=== PATIENT | female | born 1950 | race Caucasian/White ===

== ENCOUNTER → 2024-01-01 12:56 | Outpatient (REF) | payer MEDICARE, BC, SELFPAY | LOC: HWRAD 12:56 | PROVIDERS: ATTENDING PHYSICIAN Surgery; FAMILY PHYSICIAN Internal Medicine; REFERRING PHYSICIAN Internal Medicine Hematology & Oncology | DX: Z12.31 Encounter for screening mammogram for malignant neoplasm of breast (principal) | CPT/HCPCS: 77063; 77067 ==

== ENCOUNTER → 2024-01-07 10:27 | Outpatient (REF) | payer MEDICARE, BC, SELFPAY ==
[2024-01-07 12:42] LABS: ALT (SGPT) 16 U/L (0-35); AST (SGOT) 25 U/L (14-36); Albumin 4.4 g/dl (3.5-5.0); Alkaline Phosphatase 74 U/L (38-126); Blood Urea Nitrogen 12 mg/dl (7-17); Calcium 9.5 mg/dl (8.4-10.2); Carbon Dioxide 30 mmol/L (22-30); Chloride 99 mmol/L (98-107); Glucose 101 mg/dl (70-99); Sodium 137 mmol/L (135-145); Total Protein 7.4 g/dl (6.3-8.2); eGFR > 60.00
[2024-01-07 12:59] LABS: Vitamin D, 25-OH*** 34.1 ng/mL (30-80)
== END ==
LOC: HWRAD 10:27
PROVIDERS: ATTENDING PHYSICIAN Internal Medicine Hematology & Oncology; FAMILY PHYSICIAN Internal Medicine; OTHER PHYSICIAN Nurse Practitioner Adult Health; REFERRING PHYSICIAN Surgery
DX: C50.212 Malignant neoplasm of upper-inner quadrant of left female breast (principal); Z78.0 Asymptomatic menopausal state; E55.9 Vitamin D deficiency, unspecified
CPT/HCPCS: 36415; 77080; 80053; 82306

== ENCOUNTER → 2024-01-09 12:23 | Outpatient (REF) | payer MEDICARE, BC, SELFPAY | LOC: HWRAD 12:23 | PROVIDERS: ATTENDING PHYSICIAN Internal Medicine Hematology & Oncology; FAMILY PHYSICIAN Internal Medicine | DX: C50.212 Malignant neoplasm of upper-inner quadrant of left female breast (principal) | CPT/HCPCS: 72072 ==

== ENCOUNTER 2024-03-31 09:39 | Day surgery (SDC) | payer MEDICARE, BC, SELFPAY ==
--- NOTE | 2024-03-31 10:42 | ITS.CL.CARDI ---
Inspector Packer - Cardioversion
Cardioversion
Procedure Report:
Date of Procedure:
Procedure: Cardioversion
Indication: Symptomatic atrial fibrillation
Performing Physician: Maciej Hicks MD
Technique: The patient was brought to the holding area. Signed informed consent was obtained. A time out was called and performed. The patient was anesthetized by the anesthesia service. Anticoagulation status was reviewed and appropriate. R2 pads
were placed anteriorly and posteriorly. A 200 J synchronized biphasic shock restored normal sinus rhythm without significant bradycardia. There were no complications.
Conclusion: Uncomplicated cardioversion from atrial fibrillation to sinus rhythm.
Recommendation: Routine post cardioversion care. Continue half-way anticoagulation.
== END 2024-03-31 11:31 | disposition home or self-care (01) ==
LOC: CATH 09:39
PROVIDERS: ATTENDING PHYSICIAN Internal Medicine Cardiovascular Disease; FAMILY PHYSICIAN Internal Medicine
DX: I48.0 Paroxysmal atrial fibrillation (principal); R06.09 Other forms of dyspnea; I10 Essential (primary) hypertension; E78.5 Hyperlipidemia, unspecified; G47.33 Obstructive sleep apnea (adult) (pediatric); E05.90 Thyrotoxicosis, unspecified without thyrotoxic crisis or storm; Z85.3 Personal history of malignant neoplasm of breast; Z79.01 Long term (current) use of anticoagulants
CPT/HCPCS: 92960; 93005

== ENCOUNTER → 2024-04-05 15:52 | Outpatient (REF) | payer MEDICARE, BC, SELFPAY ==
--- NOTE | 2024-04-05 17:08 | CARDSERVDEF ---
Echocardiogram with Definity completed after protocol screening completed. Allergies verified.
Patent IV site: __RH___
IV site flushed with 0.9% NaCl pre and post administration.
Diluted bolus method utilized to enhance visualization of ventricular langley.
Total volume given: __3__ mL
Patient tolerated all procedures well without complications.
== END ==
LOC: RCS 15:52
PROVIDERS: ATTENDING PHYSICIAN Internal Medicine Cardiovascular Disease; FAMILY PHYSICIAN Internal Medicine
DX: R06.09 Other forms of dyspnea (principal)
CPT/HCPCS: 93306; Q9957

== ENCOUNTER 2024-06-21 08:11 | Inpatient (IN) | payer MEDICARE, BC, SELFPAY ==
[2024-06-21 08:49] VITALS: BMI 32.4
[2024-06-21 09:00] VITALS: BP 135/89
--- NOTE | 2024-06-21 09:32 | W.PN.CARDCBS ---
Addendum entered and electronically signed by Cj Manning DO 06/21/24 11:12:
I saw and examined the patient.
The In Classroom Tutor's note was reviewed and I agree with the note.
Comment:
Plan:
Tikosyn load.
Monitor QTc
Cardioversion Aug 21 AM if she fails to convert.
Cont Tele
Discussed with family at bedside.
Original Note:
Today's Communication / Plan
-
Start Tikosyn pending labs
Impression / Plan
-
PCP: Dr. Gulshan Nava
Cardiology: Dr. Fernanda Santiago
Impression:
Direct admission for Tikosyn load 06/21/24
Paroxysmal to persistent Afib
s/p PVI 2016
s/p PVI 09/11/21
Previously on propafenone, stopped due to ineffectiveness 05/01/22
Previously on sotalol, stopped due to ineffectiveness, from 05/2022 until 06/2024
Chronic Eliquis OAC
HTN
ANDRZEJ
Silent reflux and esophageal spasm treated with low dose amlodipine
Echo 04/25/22: EF 55-60%, mild MR, mild abnormal LA size
Echo 04/05/24: EF 60-65%, mild conc LVH, normal RV size and function, no aortic regurgitation
Plan:
-Patient was seen by Dr. Fernanda Santiago in the office 05/25/24 and was found to have a recurrence of Afib. Patient was offered direct admission for Tikosyn therapy and agreed. Patient had PVIs 2016 and 09/11/21. Propafenone was stopped after the
2020 ablation. Sotalol was loaded 05/2022 and last dose was 06/10/24. No missed doses of Eliquis. Patient denies intercurrent illnesses.
-QTc 471 on ECG in rate controlled Afib prior to 1st dose of Tikosyn. Will follow ECGs 2 hours after each dose of Tikosyn
-Labs pending, patient was a difficult stick.
-Toprol XL 12.5 mg daily started 06/14/24 as sotalol was washing prior to this admission. Will follow HRs on tele and likely Toprol XL will need to be stopped given h/o bradycardia. Hold parameters placed for HR less than 60.
-Cont amlodipine 2.5 mg daily which is from GI for her esophageal spasm.
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
Subjective
Date of Service: June 21, 2024
She feels well
Objective
Labs:
BUN 18, creatinine 0.5, sodium 130, potassium 4.1
Hemoglobin 13.3, WBC 5.4, PLT 164
Vital Signs and I&O:
135/89, heart rate 64 in A-fib, respiratory rate 16, temp 98.0 �F, pulse ox 95% on room air
Physical Exam
Physical Exam
GEN: NAD. AAOx3
HEENT: EOMI, MMM
LUNGS: CTA B/L, no wheezes or rales
CV: Irreg irreg, S1/S2, no murmur
ABD: soft, BS+, NT, ND
EXT: No clubbing, cyanosis, lesions or edema B/L
NEURO: Gross non-focal
SKIN: Warm, dry and pink. No rash
[2024-06-21 10:08] LABS: % Basophils 0.7 % (0-2); % Eosinophils 2.8 % (0-6); % Immature Granulocytes 0.2 % (0-0.5); % Lymphocytes 32.2 % (20.5-51.1); % Monocytes 16.1 % (1.7-9.3); Absolute Eosinophils 0.2 10^3/uL (0-0.7); Absolute Lymphocytes 1.7 10^3/uL (1.2-3.4); Absolute Monocytes 0.9 10^3/uL (0.1-0.6); Absolute Neutrophils 2.6 10^3/uL (1.4-6.5); Hematocrit 37.8 % (37.0-47.0); Hemoglobin 13.3 g/dL (12.0-16.0); Mean Corp Hgb Conc. 35.2 g/dL (33.0-37.0); Mean Corpuscular Hgb 34.5 pg (27.0-31.0); Mean Corpuscular Volume 97.9 fL (81.0-99.0); Nucleated Red Blood Cells % 0 %; Platelet Count 164 10^3/uL (130-400); Red Blood Cell Count 3.86 10^6/uL (4.20-5.40); Red Cell Dist. Width 12.7 % (11.5-14.5); White Blood Cell Count 5.4 10^3/uL (4.8-10.8)
[2024-06-21 10:31] VITALS: BMI 32.4
--- NOTE | 2024-06-21 10:40 | PTCARENOTE ---
Assumed care of pt upon arrival for Tikosyn loading. Pt received awake and alert, Ox3. VSs, CM shows AF 60-70's, POX 95% on RA. EKG, labs done as ordered. She denies any pain or discomfort. Pt oriented to room and surroundings. Awaiting
further orders.
[2024-06-21 10:45] LABS: ALT (SGPT) 10 U/L (0-35); AST (SGOT) 19 U/L (14-36); Albumin 3.6 g/dl (3.5-5.0); Alkaline Phosphatase 82 U/L (38-126); Blood Urea Nitrogen 18 mg/dl (7-17); Calcium 8.5 mg/dl (8.4-10.2); Carbon Dioxide 28 mmol/L (22-30); Chloride 104 mmol/L (98-107); Estimated Creatinine Clearance 98 ml/min; Glucose 93 mg/dl (70-99); Magnesium 1.9 mg/dl (1.6-2.3); Potassium 4.1 mmol/L (3.5-5.1); Sodium 138 mmol/L (135-145); Total Bilirubin 0.5 mg/dl (0.2-1.3); Total Protein 6.2 g/dl (6.3-8.2); eGFR > 60.00
--- NOTE | 2024-06-21 10:51 | W.CARD.TIKOS ---
Initiate Tikosyn
-
I verify that the patient has not taken any verapamil (Isoptin/Calan), ketoconazole (Nizoral), cimetidine (Tagamet), trimethoprim (Trimpex), trimethoprim/sulfamethoxazole (Bactrim), megesterol (Megace), prochlorperazine (Compazine),
hydrochlorothiazide (HCTZ), dolutegravir (Tivicay) or any Class I or Class III anti-arrhythmic within the last three days
AND
I verify that the patient has not taken amiodarone within the last THREE months, or that the patient's amiodarone plasma concentration is <0.3 mcg/mL.
Creatinine 0.5 mg/dL (0.6-1.0) L 06/21/24 09:43
Estimated Creat Clear 98 ml/min 06/21/24 09:43
CrCl calculated by me is 148 using actual body weight.
Does patient have a Ventricular Conduction Abnormality: No
I have assessed the baseline QTc interval (using QT for heart rate less than 60 bpm) and deemed the patient is appropriate for Dofetilide therapy. I understand that Tikosyn is contraindicated if the QTc is >440msec (500msec in patients with
ventricular conduction abnormalities).
Baseline QTc (in msec): 471
QTc interval is greater than 440msec without conduction abnormality OR greater than 500msec with a conduction abnormality, but acceptable to proceed per Cardiology attending.
Reason for Administration with Prolonged QTc: Other Atrial Arrhythmia
Ordering Physician: Fernanda Santiago
--- NOTE | 2024-06-21 11:58 | CM ---
Reviewed chart. Met with Mrs. Temple to review discharge plans. She states prior to admission she resides with her spouse in a second floor condo with an elevator. She states prior to admission she was independent with ambulation and adls. She
states she does not have any DME in the home. She states she has a prescription plan with [facility] and uses [facility]. Will check on her co-pay for dofetilide. She will need a three day script to go to [facility] so she can take home with
her. Will check with [facility] if they have Dofetilide in stock. Medical work-up in progress. The discharge plan is to return home with hher spouse when medically stable.
[2024-06-21] MEDS: TIKOSYN 500 MCG PO ×2 (12:07→22:27)
[2024-06-21 12:08] VITALS: BP 110/67
[2024-06-21 15:52] VITALS: BP 110/66
[2024-06-21] MEDS: LIPITOR 20 MG PO (17:35)
[2024-06-21 19:46] VITALS: BP 130/86
[2024-06-21] MEDS: ELIQUIS 5 MG PO (20:51)
[2024-06-21] MEDS: PEPCID 40 MG PO (20:57)
[2024-06-21] MEDS: MELATONIN 3 MG PO (22:27)
[2024-06-21 23:10] VITALS: BP 113/66
[2024-06-22] VITALS (7 sets, daily range): BP systolic 103–124; BP diastolic 59–98
[2024-06-22 04:35] LABS: Hematocrit 36.9 % (37.0-47.0); Hemoglobin 12.9 g/dL (12.0-16.0); Mean Corpuscular Hgb 34.6 pg (27.0-31.0); Mean Corpuscular Volume 98.9 fL (81.0-99.0); Mean Platelet Volume 9.6 fL (7.4-10.4); Platelet Count 173 10^3/uL (130-400); Red Blood Cell Count 3.73 10^6/uL (4.20-5.40); Red Cell Dist. Width 12.6 % (11.5-14.5); White Blood Cell Count 6.3 10^3/uL (4.8-10.8)
--- NOTE | 2024-06-22 04:36 | PTCARENOTE ---
second Tikosyn dose given with F/u EKG QTS 520. Will notify MD in am. VSS. Pt denies any pain or discomfort this shift.
[2024-06-22 04:59] LABS: Blood Urea Nitrogen 15 mg/dl (7-17); Carbon Dioxide 31 mmol/L (22-30); Chloride 102 mmol/L (98-107); Estimated Creatinine Clearance 98 ml/min; Glucose 105 mg/dl (70-99); Potassium 4.1 mmol/L (3.5-5.1); Sodium 139 mmol/L (135-145); eGFR > 60.00
[2024-06-22] MEDS: SYNTHROID 137 MCG PO (06:16)
[2024-06-22] MEDS: NOLVADEX 20 MG PO (08:05)
[2024-06-22] MEDS: ZESTRIL 20 MG PO (08:05)
[2024-06-22] MEDS: TOPROL XL 12.5 MG PO (08:05)
[2024-06-22] MEDS: NORVASC 5 MG PO (08:05)
[2024-06-22] MEDS: LEXAPRO 20 MG PO (08:05)
[2024-06-22] MEDS: ELIQUIS 5 MG PO ×2 (08:05→19:34)
[2024-06-22] MEDS: PROTONIX 20 MG PO (08:05)
--- NOTE | 2024-06-22 08:27 | W.PN.CARDCBS ---
Today's Communication / Plan
-
Cont Tikosyn load
QTc stable at 520., cont to monitor EKG
Impression / Plan
-
.
PCP: Dr. Gulshan Nava
Cardiology: Dr. Fernanda Santaigo
Impression:
Direct admission for Tikosyn load 06/21/24
Paroxysmal to persistent Afib
s/p PVI 2016
s/p PVI 09/11/21
Previously on propafenone, stopped due to ineffectiveness 05/01/22
Previously on sotalol, stopped due to ineffectiveness, from 05/2022 until 06/2024
Chronic Eliquis OAC
HTN
ANDRZEJ
Silent reflux and esophageal spasm treated with low dose amlodipine
Echo 04/25/22: EF 55-60%, mild MR, mild abnormal LA size
Echo 04/05/24: EF 60-65%, mild conc LVH, normal RV size and function, no aortic regurgitation
Plan:
HPI: Patient was seen by Dr. Fernanda Santiago in the office 05/25/24 and was found to have a recurrence of Afib. Patient was offered direct admission for Tikosyn therapy and agreed. Patient had PVIs 2016 and 09/11/21. Propafenone was stopped after the
2020 ablation. Sotalol was loaded 05/2022 and last dose was 06/10/24. No missed doses of Eliquis. Patient denies intercurrent illnesses.
QTc 471 on EKG in rate controlled Afib prior to 1st dose of Tikosyn and 520 after 2 doses. Cont to monitor EKGs.
Toprol XL 12.5 mg daily started 06/14/24 as sotalol was washing prior to this admission. Will follow HRs on tele. Hold parameters placed for HR less than 60.
Cont amlodipine 2.5 mg daily which is from GI for her esophageal spasm.
Discussed with nursing and EP.
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
Subjective
Date of Service: June 22, 2024
Pt seen and examined. No cp or dyspnea.
Objective
Labs:
06/22/24 04:05
06/22/24 04:05
Labs
Hgb 12.9 g/dL (12.0-16.0) 06/22/24 04:05
Hct 36.9 % (37.0-47.0) L 06/22/24 04:05
Plt Count 173 10^3/uL (130-400) 06/22/24 04:05
Sodium 139 mmol/L (135-145) 06/22/24 04:05
Potassium 4.1 mmol/L (3.5-5.1) 06/22/24 04:05
BUN 15 mg/dl (7-17) 06/22/24 04:05
Creatinine 0.6 mg/dL (0.6-1.0) 06/22/24 04:05
Glucose 105 mg/dl (70-99) H 06/22/24 04:05
Vital Signs and I&O:
Vital Signs
Temp Pulse Resp BP Pulse Ox
97.8 F 74 17 103/64 89
06/22/24 03:55 06/22/24 03:57 06/22/24 03:55 06/22/24 03:57 06/22/24 03:57
Vital Signs
Temp Pulse Resp BP Pulse Ox
97.8 F 74 17 103/64 89
06/22/24 03:55 06/22/24 03:57 06/22/24 03:55 06/22/24 03:57 06/22/24 03:57
Physical Exam
Physical Exam
General: No acute distress, AAOX3
Neck: Negative JVD
Heart: Irregularly irregular, Negative S3 positive S1/S2, Negative S4, No murmur
Lungs: CTA b/l, negative wheezes/rales/rhonchi
Abd: Positive BS, NT/ND, neg rebound/rigidity/guarding
Ext: Negative cyanosis/clubbing/edema
Neuro: nonfocal
[2024-06-22] MEDS: TIKOSYN 500 MCG PO ×2 (10:03→20:52)
--- NOTE | 2024-06-22 11:12 | CM ---
Addendum entered by Karena Blanco 06/22/24 11:34:
Reviewed co-pay with Mrs. Temple and she is agreeable to the co-pay.
Original Note:
Reviewed chart. Telephone call to Sam, ([phone]) to check on coverage for Dofetilide 500 mcg bid. She will need a prior auth. thru Cover my meds. ( code to use on cover my meds is [id number]) The estimated co-pay for Dofetilide 500 mg po
bid is $7.00 a month. if the prior auth approved. Telephone call to [facility] who states they do not have Dofetilide 500 mcg in stock. She will need a three day script sent to [facility] so a three day supply can go home with her. Prior to
admission she resides with her spouse on a second floor condo with an elevator. Prior to admission she was independent with ambulation and adls. She does not have any DME in the home. Medical work-up in progress. The discharge plan i sto return
home with her spouse when medically stable.
[2024-06-22] MEDS: LIPITOR 20 MG PO (17:35)
--- NOTE | 2024-06-22 18:00 | PTCARENOTE ---
Pt remains in Afib, rate in the 70's to 80's. Denies any pain or sob. OOB ad suze in the room. No c/o offered.
[2024-06-22] MEDS: MELATONIN 3 MG PO (22:12)
[2024-06-22] MEDS: PEPCID 40 MG PO (22:12)
[2024-06-23 04:08] VITALS: BP 103/63
[2024-06-23] MEDS: SYNTHROID 137 MCG PO (04:21)
--- NOTE | 2024-06-23 04:42 | PTCARENOTE ---
Pt in Afib 56-88BPM. Denies pain or SOB. ambulates independently NPO after midnight
[2024-06-23 05:09] LABS: Blood Urea Nitrogen 18 mg/dl (7-17); Calcium 8.9 mg/dl (8.4-10.2); Carbon Dioxide 34 mmol/L (22-30); Chloride 101 mmol/L (98-107); Estimated Creatinine Clearance 84 ml/min; Glucose 105 mg/dl (70-99); Potassium 4.1 mmol/L (3.5-5.1); Sodium 136 mmol/L (135-145); eGFR > 60.00
[2024-06-23 07:37] VITALS: BP 107/60
[2024-06-23] MEDS: NORVASC 5 MG PO (07:38)
[2024-06-23] MEDS: NOLVADEX 20 MG PO (07:38)
[2024-06-23] MEDS: ELIQUIS 5 MG PO (07:38)
[2024-06-23] MEDS: ZESTRIL 20 MG PO (07:38)
[2024-06-23] MEDS: LEXAPRO 20 MG PO (07:39)
[2024-06-23] MEDS: PROTONIX 20 MG PO (07:45)
[2024-06-23] MEDS: TIKOSYN 500 MCG PO (07:47)
--- NOTE | 2024-06-23 07:47 | W.PN.CARDCBS ---
Addendum entered and electronically signed by Delia Kline PA-C 06/23/24 14:45:
[id number]
Addendum entered and electronically signed by Cj Manning DO 06/23/24 11:19:
I saw and examined the patient.
The Wet Finisher's note was reviewed and I agree with the note.
Comment:
Plan:
QTc stable.
Successful cardioversion.
Cont Tikosyn
Outpt follow up to be arranged
d/c later today
Original Note:
Today's Communication / Plan
-
QTc stable after 4th dose of Tikosyn 500 mcg last night, 5th dose this morning
CV later this morning
Hold Toprol XL and follow HRs post-CV
D/C to home later today
Impression / Plan
-
PCP: Dr. Gulshan Nava
Cardiology: Dr. Fernanda Santiago
Impression:
Direct admission for Tikosyn load 06/21/24
Paroxysmal to persistent Afib
s/p PVI 2016
s/p PVI 09/11/21
Previously on propafenone, stopped due to ineffectiveness 05/01/22
Previously on sotalol, stopped due to ineffectiveness, from 05/2022 until 06/2024
Chronic Eliquis OAC
HTN
ANDRZEJ
Silent reflux and esophageal spasm treated with low dose amlodipine
Echo 04/25/22: EF 55-60%, mild MR, mild abnormal LA size
Echo 04/05/24: EF 60-65%, mild conc LVH, normal RV size and function, no aortic regurgitation
Plan:
-QTc 466 ms after 4th dose of Tikosyn Friday night. 5th dose of Tikosyn scheduled for Friday morning and CV as well.
-Will hold outpatient dose of Toprol XL 12.5 mg daily on 06/23/24 in anticipation of CV. Toprol XL was started 06/14/24 as sotalol was washing prior to this admission.
-Tikosyn will only be $7/month and 3 day Rx tubed to pharmacy on 06/23/24 AM.
-No missed doses of Eliquis 5 mg BID (age 73, Cre 0.7, wt 91.1 kg)
-Cont amlodipine 2.5 mg daily which is from GI for her esophageal spasm.
-Anticipated d/c to home 06/23/24
HPI: Patient was seen by Dr. Fernanda Santiago in the office 05/25/24 and was found to have a recurrence of Afib. Patient was offered direct admission for Tikosyn therapy and agreed. Patient had PVIs 2016 and 09/11/21. Propafenone was stopped after the
2020 ablation. Sotalol was loaded 05/2022 and last dose was 06/10/24. No missed doses of Eliquis. Patient denies intercurrent illnesses.
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
Subjective
Date of Service: June 23, 2024
Feels well
Objective
Labs:
06/22/24 04:05
06/23/24 04:14
Labs
Hgb 12.9 g/dL (12.0-16.0) 06/22/24 04:05
Hct 36.9 % (37.0-47.0) L 06/22/24 04:05
Plt Count 173 10^3/uL (130-400) 06/22/24 04:05
Sodium 136 mmol/L (135-145) 06/23/24 04:14
Potassium 4.1 mmol/L (3.5-5.1) 06/23/24 04:14
BUN 18 mg/dl (7-17) H 06/23/24 04:14
Creatinine 0.7 mg/dL (0.6-1.0) 06/23/24 04:14
Glucose 105 mg/dl (70-99) H 06/23/24 04:14
Vital Signs and I&O:
Vital Signs
Temp Pulse Resp BP Pulse Ox
97.9 F 69 20 103/63 92
06/23/24 07:34 06/23/24 04:30 06/23/24 07:34 06/23/24 04:08 06/23/24 07:34
Vital Signs
Temp Pulse Resp BP Pulse Ox
97.9 F 69 20 103/63 92
06/23/24 07:34 06/23/24 04:30 06/23/24 07:34 06/23/24 04:08 06/23/24 07:34
Physical Exam
Physical Exam
GEN: NAD. AAOx3
HEENT: MMM
LUNGS: No audible wheeze
CV: Afib on tele
ABD: ND
EXT: No edema B/L
NEURO: Gross non-focal
SKIN: No rash
[2024-06-23] MEDS: TOPROL XL PO (09:11)
--- NOTE | 2024-06-23 09:50 | CM ---
Reviewed chart. Met with Mrs. Temple to review discharge plans. She has the three day supply of Tikosyn to take home with her. Prior auth. was completed by the [facility] Awaiting approval for Tikosyn. Prior to admission she resides with her
spouse in a second floor condo with an elevator. Prior to admission she was independent with ambulation and adls. She does not have any DME in the home. She has a prescription plan with [facility] and uses [facility]. She states her spouse will
provide transportation home. Medical work-up in progress. The discharge plan is to return home with her spouse when medically stable.
[2024-06-23 10:40] VITALS: BP 145/99
[2024-06-23 10:42] VITALS: BP 125/81
--- NOTE | 2024-06-23 11:21 | ITS.CL.CARDI ---
Mammographer - Cardioversion
Cardioversion
Procedure Report:
Date of Procedure: June 23 2024
Procedure: Cardioversion
Indication: Symptomatic atrial fibrillation
Performing Physician: Cj Manning DO, FACC
Technique: The patient was brought to the holding area. Signed informed consent was obtained. A time out was called and performed. The patient was anesthetized by the anesthesia service. Anticoagulation status was reviewed and appropriate. R2 pads
were placed anteriorly and posteriorly. A 200 J synchronized biphasic shock restored normal sinus rhythm without significant bradycardia. There were no complications.
Conclusion: Uncomplicated cardioversion from atrial fibrillation to sinus rhythm.
Recommendation: Routine post cardioversion care. Continue longterm anticoagulation.
[2024-06-23 14:07] VITALS: BP 102/62
--- NOTE | 2024-06-23 14:42 | W.DS.TRANS ---
DC Summary - [place] [facility]
-
Discharge Instructions:
Discharge Diagnosis/Procedures Direct admission for Tikosyn (dofetilide)
loading, cardioversion 06/23/24
Diet Low Fat,Low Sodium
Activity Other activity
Driving Restrictions No driving for 24 hours
Bathing Restrictions None
Instructions:
Stand-Alone Forms: DC Instructions- Cath/EP Lab
Changes to Home Medications: Yes
Discharge Medications:
DC Medications w/original date entered in [employer]
escitalopram oxalate 20 mg tablet 20 mg PO DAILY Mental Health/Anxiety 09/06/11
apixaban 5 mg tablet (Eliquis) 5 mg PO BID Blood clot prevention/tx 08/20/17
levothyroxine 137 mcg tablet (Synthroid) 137 mg PO MOTUTHFRSA Thyroid 12/25/18
omeprazole 20 mg capsule,delayed release 20 mg PO DAILY Gastrointestinal issue 12/25/18
lisinopril 20 mg tablet 20 mg PO DAILY Blood pressure 05/07/22
famotidine 40 mg tablet 40 mg PO HS Gastrointestinal issue 05/08/22
amlodipine 2.5 mg tablet 2.5 mg PO DAILY #30 tabs 05/09/22
L.acidophilus-B.animalis-B.bifidum 25 billion cell-FOS 100 mg capsule (Probiotic Complex) 1 cap PO DAILY 07/22/23
mecobalamin (vitamin B12) 1,000 mcg chewable tablet (B12 Active) 1,000 mcg PO DAILY 07/22/23
valacyclovir 500 mg tablet 500 mg PO PRN PRN fever blisters 07/22/23
atorvastatin 20 mg tablet 20 mg PO DAILY 03/31/24
cholecalciferol (vitamin D3) 50 mcg (2,000 unit) tablet (Vitamin D3) 50 mcg PO DAILY 03/31/24
psyllium husk 0.4 gram capsule (Metamucil) 0.4 g PO DAILY PRN CONSTIPATION 03/31/24
tamoxifen 20 mg tablet 20 mg PO DAILY 03/31/24
dofetilide 500 mcg capsule 500 mcg PO Q12H Arrhythmia #60 caps 06/23/24
Home Medication Changes
New to Tikosyn
Toprol XL stopped
Pending Results: No
--- NOTE | 2024-06-23 15:51 | PTCARENOTE ---
Pt received in Afib this am. Pt returned from the cardioversion in SR and remains in SR. Pt discharged to home with her . Discharge instructions given and reviewed with good understanding. No c/o offered.
== END 2024-06-23 17:58 | disposition home or self-care (01) | DRG 310 ==
LOC: IVU 08:11
PROVIDERS: Nuclear Medicine Nuclear Cardiology; Physician Assistant Medical; ADMITTING PHYSICIAN Internal Medicine Cardiovascular Disease; FAMILY PHYSICIAN Internal Medicine
PROC: 5A2204Z Restoration of Cardiac Rhythm, Single (ICD-10-PCS; 2024-06-23)
DX: I48.19 Other persistent atrial fibrillation (principal); Z79.01 Long term (current) use of anticoagulants; I10 Essential (primary) hypertension; G47.33 Obstructive sleep apnea (adult) (pediatric)
CPT/HCPCS: 80048; 80053; 83735; 85025; 85027; 92960; 93005

== ENCOUNTER → 2024-10-21 10:51 | Outpatient (REF) | payer MEDICARE, BC, SELFPAY | LOC: WDC 10:51 | PROVIDERS: ATTENDING PHYSICIAN Surgery; FAMILY PHYSICIAN Internal Medicine | DX: R92.2 Inconclusive mammogram (principal) | CPT/HCPCS: 76641 ==

== ENCOUNTER → 2025-04-13 13:46 | Outpatient (REF) | payer MEDICARE, BC, SELFPAY | LOC: WDC 13:46 | PROVIDERS: ATTENDING PHYSICIAN Nurse Practitioner Adult Health; FAMILY PHYSICIAN Internal Medicine | DX: Z12.31 Encounter for screening mammogram for malignant neoplasm of breast (principal) | CPT/HCPCS: 77063; 77067 ==